=== PATIENT | female | born 1950 | race Caucasian/White ===

== ENCOUNTER 2016-08-21 14:12 | Emergency (ER) | payer MEDICARE, OTHER ==
[~2016-08-21] VITALS: Ht 170.2 cm; Wt 79.5 kg
[~2016-08-21 14:12] MED LIST: CALCIUM600 M2 PO; FISH OIL1000 MG PO; LEVOTHYROXIN75 MCG PO; LORAZEPAM0.5 MG PO; NORCO1 TA1 PO; RITUXAN500 MG IV; VITAMIN D5000 UNIT PO
[2016-08-21] MEDS ORDERED: ZOLPIDEM5 M1 PO (14:29)
[2016-08-21] MEDS ORDERED: CYMBALTA60 MG PO (14:30)
[2016-08-21] MEDS ORDERED: LIPITOR20 MG PO (14:32)
[2016-08-21] MEDS ORDERED: CYCLOBENZAPR5 MG PO (14:33)
[2016-08-21] MEDS ORDERED: SUMATRIPTAN25 MG PO (14:35)
[2016-08-21 15:30] LABS: HEMATOCRIT 40.4 % (37.0-47.0); HEMOGLOBIN 13.8 g/dl (12.0-16.0); IMMATURE GRANULOCYTES 0.3 % (0.0-1.0); MEAN CELL VOLUME 89.6 fL CALC (80.0-100.0); MEAN CORPUSCULAR HGB 30.6 pG CALC (26.0-32.0); MEAN CORPUSCULAR HGB CONC 34.2 g/L CALC (32.0-36.0); NEUT# 7.34 thou/uL (2.00-7.15); RED BLOOD COUNT 4.51 mill/uL (4.20-5.60); RED CELL DISTRI WIDTH 12.4 % (11.5-15.5)
[2016-08-21 15:45] LABS: ALBUMIN 4.5 g/dL (3.2-5.0); ALKALINE PHOSPHATASE 133 u/l (38-126); ANION GAP 16 (6-22 (CALC)); BILIRUBIN, TOTAL 0.8 mg/dL (0.0-1.4); BUN 9 mg/dL (8-23); BUN/CREATININE RATIO 13 (12-20 (CALC)); CALCIUM 9.4 mg/dL (8.4-10.2); CARBON DIOXIDE 28 mmol/l (22-30); CHLORIDE 103 mmol/l (95-108); CREATININE 0.7 mg/dL (0.5-1.0); GFR > 60 ML/MIN (>=60 (CALC)); GFR FOR AFR.AMER. > 60 ML/MIN (>=60 (CALC)); GLUCOSE 106 mg/dL (82-115); POTASSIUM 4.3 mmol/l (3.5-5.1); SGOT/AST 22 u/l (9-36); SGPT/ALT 35 u/l (11-66); SODIUM 142 mmol/l (137-146); TOTAL PROTEIN 7.9 g/dL (6.3-8.2)
[2016-08-21 15:49] LABS: INFLUENZA A NONE DETECTED (NONE DETECT); INFLUENZA B NONE DETECTED (NONE DETECT)
[2016-08-21] MEDS ORDERED: (None)3.5 GM OU (16:07)
[2016-08-21] MEDS ORDERED: FLONASE NASAL50 MCG (16:08)
[2016-08-21] MEDS ORDERED: CIPROFLOXACN500 MG PO (16:08)
[2016-08-21] MEDS ORDERED: ROBITUSSIN AC10 ML PO (16:08)
[2016-08-21] MEDS ORDERED: GENTAMICIN15 ML/BTL OU (16:08)
[2016-08-21 16:29] VITALS: BP 142/76
== END 2016-08-21 16:28 | disposition home or self-care (01) ==
LOC: ED 14:12
PROVIDERS: Emergency Medicine
DX: H10.9 Unspecified conjunctivitis (principal); J01.90 Acute sinusitis, unspecified; R09.81 Nasal congestion; R05 Cough; R51 Headache